=== PATIENT | female | born 1995 | race Caucasian/White ===

== ENCOUNTER → 2024-03-07 08:28 | Outpatient (REF) | payer BC, SELFPAY | LOC: PNTC 08:28 | PROVIDERS: ATTENDING PHYSICIAN Obstetrics & Gynecology | DX: O99.210 Obesity complicating pregnancy, unspecified trimester (principal) | CPT/HCPCS: 76811 ==

== ENCOUNTER → 2024-06-06 08:57 | Outpatient (REF) | payer BC, SELFPAY | LOC: PNTC 08:57 | PROVIDERS: ATTENDING PHYSICIAN Obstetrics & Gynecology | DX: O99.210 Obesity complicating pregnancy, unspecified trimester (principal) | CPT/HCPCS: 59025; 76816 ==

== ENCOUNTER → 2024-06-20 08:34 | Outpatient (REF) | payer BC, SELFPAY | LOC: PNTC 08:34 | PROVIDERS: ATTENDING PHYSICIAN Obstetrics & Gynecology | DX: O99.210 Obesity complicating pregnancy, unspecified trimester (principal) | CPT/HCPCS: 76815 ==

== ENCOUNTER → 2024-06-27 08:35 | Outpatient (REF) | payer BC, SELFPAY | LOC: PNTC 08:35 | PROVIDERS: ATTENDING PHYSICIAN Obstetrics & Gynecology | DX: O99.210 Obesity complicating pregnancy, unspecified trimester (principal) | CPT/HCPCS: 59025; 76815 ==

== ENCOUNTER → 2024-07-04 16:38 | Outpatient (REF) | payer BC, SELFPAY | LOC: PNTC 16:38 | PROVIDERS: ATTENDING PHYSICIAN Obstetrics & Gynecology | DX: O99.210 Obesity complicating pregnancy, unspecified trimester (principal) | CPT/HCPCS: 59025; 76818 ==

== ENCOUNTER → 2024-07-11 08:34 | Outpatient (REF) | payer OTHER, SELFPAY | LOC: PNTC 08:34 | PROVIDERS: ATTENDING PHYSICIAN Obstetrics & Gynecology | DX: O99.210 Obesity complicating pregnancy, unspecified trimester (principal) | CPT/HCPCS: 59025; 76815 ==

== ENCOUNTER → 2024-07-18 08:38 | Outpatient (REF) | payer OTHER, SELFPAY | LOC: PNTC 08:38 | PROVIDERS: ATTENDING PHYSICIAN Obstetrics & Gynecology | DX: O99.210 Obesity complicating pregnancy, unspecified trimester (principal) | CPT/HCPCS: 59025; 76815 ==

== ENCOUNTER 2024-07-21 00:15 | Inpatient (IN) | payer OTHER, SELFPAY ==
[2024-07-21 00:45] VITALS: BP 93/53; BMI 38.3
[2024-07-21] MEDS: LR 1000 IV ×3 (01:00→05:06)
[2024-07-21 01:20] LABS: % Basophils 0.4 % (0-2); % Eosinophils 0.8 % (0-6); % Immature Granulocytes 0.6 % (0-0.5); % Lymphocytes 22.4 % (20.5-51.1); % Monocytes 8.4 % (1.7-9.3); % Neutrophils 67.4 % (42.2-75.2); Absolute Eosinophils 0.1 10^3/uL (0-0.7); Absolute Immature Granulocytes 0.1 10^3/uL (0-0.05); Absolute Lymphocytes 1.9 10^3/uL (1.2-3.4); Absolute Monocytes 0.7 10^3/uL (0.1-0.6); Absolute Neutrophils 5.6 10^3/uL (1.4-6.5); Hematocrit 34.7 % (37.0-47.0); Mean Corp Hgb Conc. 34.6 g/dL (33.0-37.0); Mean Corpuscular Hgb 28.6 pg (27.0-31.0); Mean Corpuscular Volume 82.6 fL (81.0-99.0); Mean Platelet Volume 10.7 fL (7.4-10.4); Nucleated Red Blood Cells % 0 %; Platelet Count 222 10^3/uL (130-400); Red Cell Dist. Width 12.3 % (11.5-14.5); White Blood Cell Count 8.3 10^3/uL (4.8-10.8)
[2024-07-21] MEDS: PENICILLIN 110 UNITS IV (01:30)
[2024-07-21] MEDS: SUBLIMAZE 100 MCG EPIDURAL (01:58)
[2024-07-21] MEDS: FENTANYL/BUPIVACAINE 100 EPIDURAL (01:59)
[2024-07-21] MEDS: PENICILLIN 55 UNITS IV ×2 (05:22→09:08)
[2024-07-21] MEDS: MOTRIN 600 MG PO ×2 (17:21→23:02)
[2024-07-22] MEDS: MOTRIN 600 MG PO ×4 (05:12→23:40)
[2024-07-22 06:12] LABS: Hemoglobin 10.6 g/dL (12.0-16.0)
[2024-07-22] MEDS: PRENATAL PLUS 1 TABLET PO (09:16)
[2024-07-22] MEDS: SENOKOT-S 1 TABLET PO (09:17)
[2024-07-22] MEDS: TYLENOL 650 MG PO (23:40)
[2024-07-23] MEDS: TYLENOL 650 MG PO (07:01)
[2024-07-23] MEDS: MOTRIN 600 MG PO (07:01)
[2024-07-23] MEDS: PRENATAL PLUS 1 TABLET PO (07:55)
[2024-07-23] MEDS: SENOKOT-S 1 TABLET PO (08:13)
[2024-07-25 15:43] LABS: Syphilis/T. pallidum Ab Reflex Negative (Negative)
== END 2024-07-23 10:37 | disposition home or self-care (01) | DRG 807 ==
LOC: LDRP 00:15
PROVIDERS: Student in an Organized Health Care Education/Training Program; ADMITTING PHYSICIAN Obstetrics & Gynecology
PROC: 10E0XZZ Delivery of Products of Conception, External Approach (ICD-10-PCS; 2024-07-21)
PROC: 10907ZC Drainage of Amniotic Fluid, Therapeutic from Products of Conception, Via Natural or Artificial Opening (ICD-10-PCS; 2024-07-21)
DX: O48.0 Post-term pregnancy (principal); Z37.0 Single live birth; Z3A.40 40 weeks gestation of pregnancy; O99.824 Streptococcus B carrier state complicating childbirth; O99.214 Obesity complicating childbirth; Z28.310 Unvaccinated for COVID-19; Z80.3 Family history of malignant neoplasm of breast
CPT/HCPCS: 85014; 85018; 85025; 86780; 86850; 86900; 86901

== ENCOUNTER 2025-03-30 10:11 | Emergency (ER) | payer OTHER, SELFPAY ==
[2025-03-30 10:14] VITALS: BP 97/82
[2025-03-30 11:19] VITALS: BMI 32.5
--- NOTE | 2025-03-30 11:35 | ED.GENMED ---
History of Present Illness
General
Chief Complaint: Cold/Flu/URI Symptoms
Source: patient
Time Seen by Provider: 03/30/25 10:58
History of Present Illness
History of Present Illness:
29-year-old female with past medical history of asthma presenting to the emergency department for evaluation after she started to feel unwell this past Wednesday noting that the symptoms started as a mild sore throat as well as a erythematous
nonpruritic rash to her bilateral hip/pelvic area and lower abdomen (rash now resolved), diffuse body pain/joint pain noting that the pain in her lower extremities seems to be mostly resolved however she woke up this morning with bilateral wrist
pain, left wrist seemingly improved, still unable to range of motion right wrist without significant pain and associated fevers, did not take any antipyretics or pain medication prior to arrival. No known sick contacts, recent travel or recent
antibiotics. Patient states symptoms are also associated now with sore throat but denies any cough, nausea or vomiting, abdominal pain, chest pain or shortness of breath. Patient states no recent medication changes. She did go to urgent care
where she had strep test which was negative and reportedly negative throat culture. Denies any history of similar. Social history was noncontributory. Of note patient's she never received any childhood vaccinations and is not up-to-date on any
vaccination series.
Past History
Past History
ED Past Medical History: Asthma
ED Past Surgical History: None
Social History
Tobacco: Non-smoker
Alcohol: None
Drug: None
Personal:
Living: with family
Employment: Employed
Review of Systems
Review of Systems
All Other Systems: ROS reviewed and negative except as documented in HPI and ROS
Phy Exam
Physical Exam
Physical Exam:
GENERAL: Alert , in no apparent distress but does appear uncomfortable with any movement of the right upper extremity
EYE: clear conjunctiva b/l, nonicteric or injected sclera
HEAD: NCAT
ENT: o/p clr, mmm.
CARDIAC: Tachycardic rate, normal rhythm
LUNGS: Clear breath sounds bilaterally, no acute respiratory distress, no wheezes/rales/rhonchi
ABDOMEN: Soft, without focal tenderness, no r/g, no cvat
NEUROLOGICAL: Alert and oriented
SKIN: Warm and dry, skin intact. No current rash
MUSCULOSKELETAL: No edema, well perfused. Right upper extremity elbow at 90 degrees flexion holding against her body, unable to flex or extend the wrist or pronate and supinate secondary to pain. Extremity is otherwise warm and well-perfused and
without any erythema or signs of trauma
PSYCH: Normal and appropriate interaction.
Scores
Heart Failure Risk
Heart Failure Risk Score: Not Applicable
Heart Score for Chest Pain Patients
STEMI patient?: Not applicable
Withdrawal Assessment of Alcohol
Withdrawal Assessment Completed?: Not applicable
Sepsis
Sepsis Screening
Sepsis Assessment: Sepsis Ruled Out
Sepsis Screen
Sepsis Screen: Sepsis Ruled Out
Date: 03/30/25
Time: 13:56
Course
Orders/Labs/Results
Orders:
Orders
03/30/25 11:24
0.9% Sodium Chloride 1000 ml [Nss] 1,000 ml IV BOLUS
03/30/25 11:25
Ketorolac [Toradol] 30 mg IV NOW STA
Test Result ONCE
03/30/25 11:37
COVID-19 Antigen Urgent
Source: Nasal Swab
Complete Blood Count/With Diff Urgent
Comprehensive Metabolic Panel Urgent
Ehrlichia/Anaplasma by PCR [S] Urgent
HCG, Serum Qualitative Screen Urgent
Lyme Progressive Urgent
Monotest Urgent
Blood Parasites Urgent
[place] Source: Blood/Venous
Specimen Description:
03/30/25 12:55
Rapid Strep Group A Urgent
[place] Source: Throat/Pharynx
Specimen Description:
Date Specimen was Collected: 03/30/25
Time Specimen was Collected: 12:52
03/30/25 13:17
Urinalysis Reflex To Culture Urgent
Date Specimen was Collected: 03/30/25
Time Specimen was Collected: 12:52
Urine Microscopic Reflex Cult Urgent
Urine Culture Urgent
[place] Source: U
Specimen Description:
Date Specimen was Collected: 03/30/25
Time Specimen was Collected: 12:52
03/30/25 13:42
Thumb Spica Right-Treatment ONCE
Abnormal Lab Results
03/30/25 03/30/25
11:37 13:17
WBC 16.5 H 10^3/uL
(4.8-10.8)
Abs Immat Gran (auto) 0.1 H 10^3/uL
(0-0.05)
Absolute Neuts (auto) 15.3 H 10^3/uL
(1.4-6.5)
Absolute Lymphs (auto) 0.5 L 10^3/uL
(1.2-3.4)
Neutrophils % 92.7 H %
(42.2-75.2)
Lymphocytes % 3.0 L %
(20.5-51.1)
Urine Ketones 3+ A
(Negative)
Ur Occult Blood Reflex 2+ A
(Negative)
Leukocyte Esterase Rfl 3+ A
(Negative)
Urine Bacteria (Reflex) Few A
(Negative)
Urine Albumin (Reflex) 2+ A
(Neg - Trace)
03/30/25 11:37
03/30/25 11:37
Vital Signs
Initial and Last Documented VS:
Initial Vital Signs
Temp Pulse Resp BP Pulse Ox
99.7 F 125 20 97/82 95
03/30/25 10:14 03/30/25 10:14 03/30/25 10:14 03/30/25 10:14 03/30/25 10:14
Last Documented Vital Signs
Temp Pulse Resp BP Pulse Ox
99.9 F 92 26 104/62 95
03/30/25 11:55 03/30/25 11:46 03/30/25 11:46 03/30/25 11:46 03/30/25 11:44
MDM/Problems Addressed
Differential Diagnosis Includes:
Strep throat/scarlatina
[place]
Tonsillitis
Viral syndrome/measles considered however given the disappearance of the rash as well as no coryza/ocular involvement my suspicion is less likely for this as well as patient has not had any recent travel or known sick contacts
Peritonsillar abscess
Reactive arthritis
Lyme or other tickborne illness
MDM/Problems Addressed:
29-year-old female presenting to the ER for evaluation of continued fevers, sore throat, rash (rash currently resolved) with symptoms ongoing for the last 3 to 4 days. Patient also noting significant right wrist pain with inability to range of
motion but has had varying degrees of joint throughout her body during this time. Low-grade temperature here accompanied with tachycardia. Will treat elevated heart rate with fluids. Toradol ordered for pain. Labs including Lyme, mono ordered.
COVID test ordered. Disposition pending.
*Pulse Oximetry
SaO2: 95
Oxygen Mode of Delivery: Room air
Patient hypoxic: no
*Brand Sales Consultant Interpretation
Rate: normal
Heart Rate: 92
Rhythm: sinus
*Critical Care Note
Total Time (30-74mins, 75-104mins- exclusive of procedures): Not Applicable
Patient Management
Escalation/DeEscalation of care consider admission/obs:
Patient's workup was noted for a leukocytosis but no specific infectious etiology found. Patient declined x-ray imaging. Urinalysis does have 3+ leukocytes but there is greater than 30 squamous cells and few bacteria signifying likely
contamination. Culture sent. We placed a thumb spica splint for comfort and patient reports good relief with this. Continue NSAIDs/Tylenol as needed for pain. Patient aware of return precautions to the ER. Stable for discharge home.
ED Attending Note
-
Portions of this chart may have been created with voice recognition software.� Occasional wrong word or��sound alike� substitutions may have occurred due to the inherent limitations of voice recognition software.
Discharge Plan
Departure
Patient Disposition: Home (Routine Discharge)
Date of Disposition: 03/30/25
Time of Disposition: 13:21
Patient with high blood pressure during this ER visit?: No
Discharge Problem:
Sore throat, Pain in right wrist, Fever
Instructions: Viral Syndrome (DC)
Prescriptions:
No Action
vit-iron fum-folic ac [ Tablet] 28 mg iron- 800 mcg Tablet
1 tab PO DAILY
ibuprofen 600 mg Tablet
600 mg PO Q6HPRN PRN (Reason: moderate pain/cramps) Qty: 90 0RF
Referrals:
UNKNOWN - PT DOES,NOT KNOW [Family Provider]
Interventions
Interventions:
*Risk Screen - Suicide Last Done: 03/30/25 10:14
*General Assessment Last Done: 03/30/25 10:14
*Neglect/Abuse Screening Last Done: 03/30/25 10:14
ED- Pulmonary Assessment Last Done: 03/30/25 11:56
Discharge Date and Time
Print Language: WOLOF
[2025-03-30] MEDS: NSS 1000 IV (11:40)
[2025-03-30] MEDS: TORADOL 30 MG IV (11:41)
[2025-03-30 11:46] VITALS: BP 104/62
[2025-03-30 11:51] LABS: Hematocrit 39.1 % (37.0-47.0); Hemoglobin 13.3 g/dL (12.0-16.0); Mean Corp Hgb Conc. 34.0 g/dL (33.0-37.0); Mean Corpuscular Volume 82.0 fL (81.0-99.0); Nucleated Red Blood Cells % 0 %; Platelet Count 289 10^3/uL (130-400); Red Cell Dist. Width 13.4 % (11.5-14.5)
[2025-03-30 12:00] VITALS: BP 105/59
[2025-03-30 12:05] LABS: COVID-19 Antigen Negative (Negative); HCG, Serum Qualitative Screen Negative
[2025-03-30 12:10] LABS: ALT (SGPT) 15 U/L (0-35); AST (SGOT) 24 U/L (14-36); Albumin 4.6 g/dl (3.5-5.0); Alkaline Phosphatase 84 U/L (38-126); Blood Urea Nitrogen 11 mg/dl (7-17); Calcium 9.6 mg/dl (8.4-10.2); Carbon Dioxide 22 mmol/L (22-30); Chloride 103 mmol/L (98-107); Estimated Creatinine Clearance 100 ml/min; Glucose 90 mg/dl (70-99); Potassium 3.8 mmol/L (3.5-5.1); Sodium 137 mmol/L (135-145); Total Protein 7.1 g/dl (6.3-8.2); eGFR > 60.00
[2025-03-30 13:00] VITALS: BP 108/61
[2025-03-30 13:26] LABS: Urine Character Clear (Clear)
[2025-03-30 13:41] LABS: Urine Red Blood Cell 0-2 /HPF (0-2); Urine Squamous Cell >30 /LPF (Few)
== END 2025-03-30 14:03 | disposition home or self-care (01) ==
LOC: EMR 10:11
PROVIDERS: Physician Assistant Medical; EMERGENCY PHYSICIAN Emergency Medicine
DX: R07.0 Pain in throat (principal); M25.531 Pain in right wrist; R50.9 Fever, unspecified; J45.909 Unspecified asthma, uncomplicated
CPT/HCPCS: 99283; 96374; 96361; 80053; 81003; 81015; 84703; 85025; 86308; 86618; 87015; 87070; 87086; 87207; 87468; 87484; 87798; 87811; 87880